=== PATIENT | male | born 1940 | race Caucasian/White ===

== ENCOUNTER → 2018-12-15 | Outpatient (CLI) | payer MEDICARE ==
--- NOTE | 2018-12-15 16:57 | US ---
EXAM DESCRIPTION: Venous,Lower Extremity RT CLINICAL HISTORY: LOWER EXTREMITY SWELLING COMPARISON: None Available. TECHNIQUE: Right lower extremity venous duplex FINDINGS: Doppler evaluation of the right lower extremity deep veins was performed. Normal color flow is seen in the common femoral, superficial femoral, profunda femoral and greater saphenous veins. Normal flow is seen in the popliteal vein and veins below the knee in the calf. Normal venous compressibility and flow augmentation. Small posterior popliteal or Cantrell cyst. Mildly prominent lymph nodes in the right groin with normal fatty purvi. IMPRESSION: Negative for evidence of deep venous thrombosis on right lower extremity venous Doppler sonogram. Electronically signed by: Scott Samaniego MD 12/15/2018 4:55 PM CDT
== END ==
LOC: US 15:19
PROVIDERS: ATTEND Nurse Practitioner Family
DX: L03.115 Cellulitis of right lower limb (principal); M79.89 Other specified soft tissue disorders

== ENCOUNTER → 2018-12-29 | Outpatient (CLI) | payer MEDICARE ==
--- NOTE | 2019-01-01 07:33 | MRI ---
EXAM DESCRIPTION: MRI right foot without and with contrast CLINICAL HISTORY: Nonhealing wound of foot for 3 months. COMPARISON: None. TECHNIQUE: Multiplanar, multisequence MR images of the right foot pre and post intravenous gadolinium FINDINGS: Chronic ulceration in the soft tissues along the plantar foot beneath the sesamoids of the great toe. Bipartite chronically fragmented well-corticated medial and lateral sesamoids. Increased signal within the sesamoids on STIR images involving the proximal pole of the medial and both components of the lateral sesamoid. Mild contrast enhancement of the same bones. Due to the proximity of the chronic ulceration the signal and enhancement is compatible with osteomyelitis Moderate metatarsal phalangeal joint effusion of the great toe. Mild synovitis with enhancement of the synovium. No chondral or osseous erosion. No significant surrounding edema to strongly suggest acute septic arthritis. 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 Tiny focus of edema in the metatarsal head from overlying chondrosis No marrow edema in the metatarsals or phalanges to diagnose osteomyelitis No osteochondral lesion or advanced arthrosis of the metatarsal phalangeal joints or interphalangeal joints of the other toes. Small region of grade 4 chondrosis in the proximal dorsal second metatarsal articulation with the cuneiform. No advanced arthrosis tarsometatarsal. Midfoot interosseous ligaments are intact No tenosynovitis. No intrinsic focal muscle abnormality IMPRESSION: Plantar ulceration beneath the sesamoids the great toe. Bipartite sesamoids. 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 No inflammatory chondral erosion, osseous edema or significant surrounding pericapsular inflammatory change Electronically signed by: Casimiro Garcia MD 01/01/2019 7:31 AM CDT
== END ==
LOC: MRI 09:00
PROVIDERS: ATTEND Surgery
DX: S91.301D Unspecified open wound, right foot, subsequent encounter (principal); M25.871 Other specified joint disorders, right ankle and foot; M65.872 Other synovitis and tenosynovitis, left ankle and foot